=== PATIENT | male | born 1950 | race Caucasian/White ===

== ENCOUNTER 2021-07-10 17:12 | Outpatient (REF) | payer MEDICARE, SELFPAY | END 2021-07-10 17:13 | disposition home or self-care (01) | LOC: HO.LNP 17:12 | PROVIDERS: Visit Provider Hospitalist | DX: Z20.822 Contact with and (suspected) exposure to COVID-19 (principal); J01.90 Acute sinusitis, unspecified | CPT/HCPCS: U0003; U0005 ==